=== PATIENT | female | born 1995 ===

== ENCOUNTER 2021-11-25 01:34 | Emergency (ER) | payer SELFPAY ==
[2021-11-25] MEDS ORDERED: Sodium Chloride 0.9% 1,000 ML IV ONE (02:09)
[2021-11-25 02:38] LABS: ANION GAP 11.2 mEq/L (7-13); CHLORIDE,CL 105 mmol/L (98-107); SODIUM,NA 139 mmol/L (136-145)
[2021-11-25 02:40] LABS: AMPHETAMINES,URINE NEGATIVE (NEGATIVE); BARBITURATES,URINE NEGATIVE (NEGATIVE); BENZODIAZEPINE,URINE NEGATIVE (NEGATIVE); MDMA (ECSTASY), URINE NEGATIVE (NEGATIVE); METHADONE,URINE NEGATIVE (NEGATIVE); METHAMPHETAMINES,URINE NEGATIVE (NEGATIVE); OPIATES,URINE NEGATIVE (NEGATIVE); OXYCODONE,URINE NEGATIVE (NEGATIVE); PHENCYCLIDINE,URINE NEGATIVE (NEGATIVE); TCA,URINE NEGATIVE (NEGATIVE)
[2021-11-25 02:41] LABS: ESTIMATED GFR 111 mL/min (>=60)
[2021-11-25 02:42] LABS: ACETAMINOPHEN 0 ug/mL (10-30 (Therapeutic))
[2021-11-25 02:58] LABS: CORONAVIRUS COVID-19 NAA NEGATIVE (NEGATIVE)
== END 2021-11-25 03:15 | disposition home or self-care (01) ==
LOC: DL.ED 01:34
DX: F12.90 Cannabis use, unspecified, uncomplicated (principal); Z20.822 Contact with and (suspected) exposure to COVID-19
CPT/HCPCS: 0240U; 36415; 80053; 80143; 80179; 80305-QW; 80307; 81001; 81025; 85025; 87086; 96360; 99283; 99285-25; J7030